=== PATIENT | male | born 1985 | race African-American/Black ===

== ENCOUNTER 2017-10-18 04:22 | Emergency (ER) | payer OTHER ==
[~2017-10-18] VITALS: Ht 172.7 cm; Wt 136.1 kg
--- NOTE | 2017-10-18 04:36 | NUR ---
PT TO ER BED 15. [facility] FROM [facility] FOR ETOH. PT ADMITS TO TAKING "DOPE AND DRINKING". PT PLACED IN GOWN AND ON SEISMIC ENGINEER. VSS/RESP EVEN UNLABORED/NAD NOTED/SKIN WARM AND DRY/DENIES N-V-D/AOX4. AWAITING MD CAGLE.
--- NOTE | 2017-10-18 04:50 | NUR ---
LAB AT BEDSIDE TO DRAW.
--- NOTE | 2017-10-18 04:52 | NUR ---
URINE SPECIMEN OBTAINED AND HANDED OVER TO LAB AT THE BEDSIDE.
--- NOTE | 2017-10-18 05:30 | NUR ---
MADE AWARE LAB WAS UNABLE TO OBTAIN BLOOD FROM PT.
[2017-10-18 05:50] LABS: APPEARANCE,URINE CLEAR (CLEAR); BILIRUBIN,URINE 1+ (NEGATIVE); BLOOD, URINE NEGATIVE Ery/uL (NEGATIVE); COLOR,URINE YELLOW (YELLOW); KETONES,URINE NEGATIVE (NEGATIVE); LEUKOCYTE ESTERASE ,URINE NEGATIVE (NEGATIVE); NITRITE, URINE NEGATIVE (NEGATIVE); PROTEIN,URINE NEGATIVE (NEGATIVE); UGLUCOSE NEGATIVE (NEGATIVE); UROBILINOGEN,URINE 0.2 EU/dL (0.2)
[2017-10-18 05:59] LABS: BACTERIA,URINE None seen /HPF (None Seen); MUCUS,URINE Many /LPF (None Seen); RBC,URINE 0-2 /HPF (0-2); SQUAMOUS EPITHELIAL CELL,UR Few /HPF (None Seen); WBC,URINE 0-2 /HPF (0-3)
--- NOTE | 2017-10-18 06:57 | NUR ---
PT RESTING QUIETLY, AROUSES EASILY TO VOICE. VSS.
--- NOTE | 2017-10-18 07:36 | NUR ---
PT ON MONITOR SATURATING 99% ALERT AND ORIENTED X 4 ASKING FOR SOMETHING TO EAT GIVEEN FOOD. VITAL SIGNS STABLE PENDING DISCHARGE PER MD
[2017-10-18 08:04] LABS: CALCIUM, SERUM 8.7 mg/dL (8.5-10.1); CARBON DIOXIDE 26 mmol/L (21-32); CHLORIDE 102 mmol/L (98-107); CREATININE 0.9 mg/dL (0.6-1.3); GLUCOSE 113 mg/dL (74-106); POTASSIUM 3.5 mmol/L (3.5-5.1); SODIUM SERUM 139 mmol/L (136-145); UREA NITROGEN, BLOOD 15 mg/dL (7-18)
[2017-10-18 08:05] LABS: BASOPHILS % (AUTO) 0.7 % (0.0-2.0); EOSINOPHILS # (AUTO) 0.3 /CMM (0.0-0.7); EOSINOPHILS % (AUTO) 4.6 % (0.0-6.0); HEMATOCRIT 39 % (39-51); HEMOGLOBIN 13.4 g/dL (13.5-17.5); LYMPHOCYTES # (AUTO) 1.6 /CMM (0.8-4.8); LYMPHOCYTES % (AUTO) 28.8 % (20.0-44.0); MEAN CORPUSCULAR HEMOGLOBIN 28 PG (26.0-33.0); MEAN CORPUSCULAR HGB CONC 34 g/dl (31.0-36.0); MEAN CORPUSCULAR VOLUME 82 fL (80-96); MONOCYTES # (AUTO) 0.4 /CMM (0.1-1.30); MONOCYTES % (AUTO) 7.3 % (2.0-12.0); NEUTROPHILS # (AUTO) 3.2 /CMM (1.8-8.9); NEUTROPHILS % (AUTO) 58.6 % (43.0-81.0); PLATELET COUNT (AUTO) 348 /CMM (150-450); RDW COEFFICIENT OF VARIATION 15.9 (11.5-15.0); RED BLOOD CELL COUNT(AUTO) 4.79 MIL/uL (4.5-6.0); WHITE BLOOD COUNT (AUTO) 5.5 K/uL (4.3-11.0)
[2017-10-18 08:11] LABS: ALANINE AMINOTRANSFERASE 37 U/L (12-78); ALBUMIN 3.7 g/dL (3.4-5.0); ALCOHOL, BLOOD < 3 mg/dL (0-0); ALKALINE PHOSPHATASE 62 U/L (46-116); ASPARTATE AMINOTRANSFERASE 40 U/L (15-37); BILIRUBIN,DIRECT 0.2 mg/dL (0.0-0.2); BILIRUBIN,TOTAL 0.7 mg/dL (0.2-1.0); TOTAL PROTEIN, SERUM 7.3 g/dL (6.4-8.2)
[2017-10-18 08:17] LABS: ACETAMINOPHEN 0 ug/ml (10-30); SALICYLATE 0.7 mg/dL (2.8-20.0)
--- NOTE | 2017-10-18 08:55 | NUR ---
PATIENT'S PACKAGE FAXED TO [facility]. AWAITING FOR ADMISSION/BED AVAILABILITY.
--- NOTE | 2017-10-18 10:00 | NUR ---
JESUS CALLED FROM [facility]. PATIENT MIGHT GO TO [facility], AWAITING APPROVAL AND BED AVAILABILITY.
--- NOTE | 2017-10-18 11:37 | NUR ---
Dewayne reaves in ED - 10/18/17 at 1225 by SHIRLEY PT ACCEPTED [facility] CALL REPORT [phone] ASK FOR CHARGE NURSEJuan KUHN
--- NOTE | 2017-10-18 12:25 | NUR ---
PT ACCEPTED AT [facility].
--- NOTE | 2017-10-18 12:25 | NUR ---
REPORT GIVEN BY ERIN PT TRANSPORTED BY [facility] RIG # [id number] PT COOPERATIVE AND RESPONDS TO SIMPLE COMMANDS
[2017-10-18 12:41] VITALS: BP 133/74
--- NOTE | 2017-10-18 12:42 | NUR ---
ACCEPTED TO [facility], ROOM 624-B. NUMBER FOR REPORT [phone] EXT# [phone]
== END 2017-10-18 12:35 ==
LOC: ER 04:25
DX: F14.10 Cocaine abuse, uncomplicated (principal); F12.10 Cannabis abuse, uncomplicated; F10.129 Alcohol abuse with intoxication, unspecified; F19.10 Other psychoactive substance abuse, uncomplicated
CPT/HCPCS: 36415; 80048; 80076; 80305; 80329; 81001; 85025; 99285; A4606; G0480 ×2; Z7610; 81000-TC